=== PATIENT | female | born 1985 | race Caucasian/White ===

== ENCOUNTER 2022-08-06 19:31 | Emergency (ER) | payer SELFPAY | END 2022-08-06 20:11 | disposition home or self-care (01) | LOC: VM.ED 19:31 | DX: S61.211A Laceration without foreign body of left index finger without damage to nail, initial encounter (principal); W26.8XXA Contact with other sharp object(s), not elsewhere classified, initial encounter | CPT/HCPCS: 12001; 99282; 99283 ==